=== PATIENT | female | born 1970 | race Caucasian/White ===

== ENCOUNTER 2020-03-21 17:14 | Emergency (ER) | payer SELFPAY ==
[~2020-03-21] VITALS: Ht 157.5 cm; Wt 64.0 kg
[2020-03-21 17:24] VITALS: BP 120/72
== END 2020-03-21 17:25 | disposition left against medical advice (07) ==
LOC: ER 17:14
DX: Z53.21 Procedure and treatment not carried out due to patient leaving prior to being seen by health care provider (principal)